=== PATIENT | female | born 1945 | race Caucasian/White ===

== ENCOUNTER 2021-09-08 10:00 | Outpatient (RCR) | payer MEDICARE, SELFPAY | END 2021-09-11 23:59 | disposition home or self-care (01) | LOC: CR 10:00 | PROVIDERS: PCP Family Medicine; Visit Provider Internal Medicine Cardiovascular Disease | DX: Z51.89 Encounter for other specified aftercare (principal); Z95.2 Presence of prosthetic heart valve | CPT/HCPCS: S9472 ==

== ENCOUNTER 2021-09-27 10:00 | Outpatient (RCR) | payer MEDICARE, SELFPAY | END 2021-10-12 23:59 | disposition home or self-care (01) | LOC: CR 10:00 | PROVIDERS: PCP Family Medicine; Visit Provider Internal Medicine Cardiovascular Disease | DX: Z51.89 Encounter for other specified aftercare (principal); Z95.2 Presence of prosthetic heart valve | CPT/HCPCS: S9472 ==

== ENCOUNTER 2021-11-10 10:00 | Outpatient (RCR) | payer MEDICARE, SELFPAY | END 2021-11-11 23:59 | disposition home or self-care (01) | LOC: CR 10:00 | PROVIDERS: PCP Family Medicine; Visit Provider Internal Medicine Cardiovascular Disease | DX: Z51.89 Encounter for other specified aftercare (principal); Z95.2 Presence of prosthetic heart valve | CPT/HCPCS: S9472 ==

== ENCOUNTER 2021-12-08 10:00 | Outpatient (RCR) | payer MEDICARE, SELFPAY | END 2021-12-12 23:59 | disposition home or self-care (01) | LOC: CR 10:00 | PROVIDERS: Absent Provider Internal Medicine Cardiovascular Disease; PCP Family Medicine; Visit Provider Internal Medicine Cardiovascular Disease | DX: Z51.89 Encounter for other specified aftercare (principal); Z95.2 Presence of prosthetic heart valve | CPT/HCPCS: S9472 ==

== ENCOUNTER 2021-12-13 10:00 | Outpatient (RCR) | payer MEDICARE, SELFPAY | END 2022-01-12 23:59 | disposition home or self-care (01) | LOC: CR 10:00 | PROVIDERS: Absent Provider Internal Medicine Cardiovascular Disease; PCP Family Medicine; Visit Provider Internal Medicine Cardiovascular Disease | DX: Z51.89 Encounter for other specified aftercare (principal); Z95.2 Presence of prosthetic heart valve | CPT/HCPCS: S9472 ==